=== PATIENT | female | born 1945 | race Caucasian/White ===

== ENCOUNTER → 2017-03-18 | Outpatient (CLI) | payer OTHER ==
[~2017-03-18] MED LIST: CALCIUM; CALCIUM 600 +1 EACH PO; DOXYCYCLINE 10100 M1 OR; MULTIVITAMINS1 EAC7 PO; STOOL SOFTENER50 MG; VITAMIN C120 GM PO; VITAMIN C500 M1 PO; VITAMIN D1000 UNI1 PO; VITAMIN D1000 UNI2 PO; VITAMIN E400 UNI2 PO
== END ==
LOC: RAD 02:24
DX: Z12.31 Encounter for screening mammogram for malignant neoplasm of breast (principal)